=== PATIENT | female | born 1985 | race African-American/Black ===

== ENCOUNTER 2016-10-29 19:22 | Emergency (ER) | payer OTHER ==
[~2016-10-29 19:22] MED LIST: ORUDIS75 M1 DOB
== END 2016-10-29 22:25 | disposition home or self-care (01) ==
LOC: CED 19:22
DX: I10 Essential (primary) hypertension (principal); Z79.1 Long term (current) use of non-steroidal anti-inflammatories (NSAID)
CPT/HCPCS: 99282